=== PATIENT | male | born 1950 | race Caucasian/White ===

== ENCOUNTER 2024-11-12 09:51 | Day surgery (SDC) | payer MEDICARE, SELFPAY ==
--- NOTE | 2024-11-09 10:08 | SUR.PREOP ---
attempted to call pt to preop them, no answer. voicemail left with detailed information and callback number left
[2024-11-12 10:48] VITALS: BP 145/75; PULSE 74; RESP 18; TEMP 36.5; O2SAT 94; BMI 27.8
[2024-11-12 11:12] LABS: POC Glucose,Bedside 130 (70-110)
[2024-11-12] MEDS: LACTATED RINGERS 1000ML 1,000 ML 50 ML IV (11:16)
--- NOTE | 2024-11-12 11:18 | EXP.ANES.CKL ---
[facility] Disclaimer: The information contained in this section may have been updated after the patient was seen, as this information can be updated by other users. Medical History (Updated 11/12/24 @ 11:01 by Laura Champion RN) History of COVID-19 Diabetes mellitus, type 2 Atrial fibrillation Below knee amputation Pacemaker Skin cancer Surgical History H/O knee surgery H/O oral surgery History of total knee replacement Family History (Updated 11/12/24 @ 11:02 by Laura Champion RN) Other Amputee Diabetes type 1 Heart attack Hypertension Kidney stone Social History (Updated 11/12/24 @ 11:01 by Laura Champion RN) Smoking Status: Never smoker alcohol intake: former substance use type: denies use current occupational status: employed Travel in the last 8 weeks: Inside the [place] caffeine: Yes [facility] Anesthesia Checklist Patient Identification Patient Identification: Arm Band Structural Data Admitted From: Home Planned Operative Procedure/s: Colonoscopy Consent for Planned Operative Procedure(s) Verified: Yes Verified Documents: Surgical Consent and History and Physical NPO Status Verified Time NPO: 05:30 (finished prep) Additional verifications Anesthesia Reactions: No Airway Assessment Mallampati Score:: Class II C-Spine Mobility Assessed: Yes TMJ Mobility Assessed: Yes Dentition: Good Dentition Neurological Assessment Level of Consciousness: Awake, Alert and Appropriate Anesthesia Plan Anesthesia Risk discussed: Yes Anesthesia Plan: Verified ASA Class: III Anesthesia Type: MAC
--- NOTE | 2024-11-12 11:55 | EXP.HP ---
History of Present Illness *Admission Date: 11/12/24 *Reason for visit:: Initial screening colonoscopy *History of present illness: Mr. Tee is a 74-year-old gentleman who is here for initial screening colonoscopy. The examination is deemed medically necessary for screening colonoscopy. The patient has been seen, interviewed and examined prior to the procedure by both myself and the anesthesia provider. [facility] Disclaimer: The information contained in this section may have been updated after the patient was seen, as this information can be updated by other users. Medical History (Updated 11/12/24 @ 12:06 by Rajeev Del Valle II, MD) History of COVID-19 Diabetes mellitus, type 2 Atrial fibrillation Below knee amputation Pacemaker Skin cancer Surgical History H/O knee surgery H/O oral surgery History of total knee replacement Family History (Updated 11/12/24 @ 11:02 by Laura Champion RN) Other Amputee Diabetes type 1 Heart attack Hypertension Kidney stone Social History (Updated 11/12/24 @ 11:25 by Kenneth Troy CRNA) Smoking Status: Never smoker alcohol intake: former substance use type: denies use current occupational status: employed Travel in the last 8 weeks: Inside the [place] caffeine: Yes Have you lived/traveled outside [place] in past 30 days?: No Contact w/someone who lives/traveled outside US past 30 days?: No Exposure to someone with infectious disease in past 14 days?: No Do you have a fever (greater than 100.4 F or 38 C)?: No Have you tested positive for COVID-19: No Exposed to someone with COVID-19 in past 14 days?: No Do you have a sore throat?: No Do you have a cough?: No Do you have any weakness?: No Are you experiencing any nausea/vomitting?: No Do you have any diarrhea?: No Are you experiencing any unusual bleeding?: No Do you have any muscle aches/pain?: No Do you have any abdominal pain?: No Are you experiencing loss of taste or smell?: No Review of Systems Review of Systems Review of systems (narrative): Negative *Cardiovascular Comments: Negative *Gastrointestinal Comments: Negative *Genitourinary Comments: Negative *Musculoskeletal Comments: Negative *Neurologic Comments: Negative Meds Home Medications and Allergies Home Medications ?Medication ?Instructions ?Recorded ?Confirmed ?Type sodium,potassium,mag sulfates 17.5 See Rx Instructions PO .COMPLEX 10/29/24 Rx gram-3.13 gram-1.6 gram oral soln #354 mL (Suprep Bowel Prep Kit) atorvastatin 40 mg tablet 40 mg PO HS 11/12/24 11/12/24 History diclofenac sodium 75 mg 75 mg PO DAILY 11/12/24 11/12/24 History tablet,delayed release empagliflozin 25 mg tablet 25 mg PO DAILY 11/12/24 11/12/24 History (Jardiance) gabapentin 300 mg capsule 300 mg PO TID 11/12/24 11/12/24 History metformin 750 mg tablet 750 mg PO BID 11/12/24 11/12/24 History metoprolol succinate 50 mg 50 mg PO DAILY 11/12/24 11/12/24 History tablet,extended release 24 hr rivaroxaban 20 mg tablet (Xarelto) 20 mg PO DAILY 11/12/24 11/12/24 History sacubitril 49 mg-valsartan 51 mg 1 tab PO BID 11/12/24 11/12/24 History tablet (Entresto) New Prescriptions to Start Prescriptions: Allergies Allergy/AdvReac Type Severity Reaction Status Date / Time No Known Allergies Allergy Verified 11/12/24 10:40 Exam Data for Last 24 hours Vital signs and Labs for Last 24 Hours: Temp Pulse Resp BP Pulse Ox O2 Del Method 97.7 F 74 18 145/75 H 94 L Room Air 11/12/24 10:48 11/12/24 10:48 11/12/24 10:48 11/12/24 10:48 11/12/24 10:48 11/12/24 10:48 Laboratory Results - last 24 hr 11/12/24 10:55: POC Glucose 130 H I & O for Last 24 hours: Intake & Output 11/09/24 11/10/24 11/11/24 11/12/24 23:59 23:59 23:59 23:59 Weight 200 lb *Routine HEENT Exam Head: Present normocephalic Eye: Present EOMI and PERRL ENT: Present mucous membranes moist *Routine Neck Exam Neck: Present supple *Routine Respiratory Exam Respiratory: Present CTA bilaterally *Routine Cardiovascular Exam Cardiovascular: Present RRR *Routine Abdominal Exam Abdominal: Present soft and normoactive bowel sounds; Absent tenderness *Routine Rectal Exam Rectal:: deferred *Routine Genitalia Exam Genitalia:: deferred *Routine Extremities Exam Extremities: Absent cyanosis, clubbing or edema *Routine Skin Exam Skin: Present warm; Absent rash *Routine Neurological Exam Neurological: Present alert and oriented X3 Assessment and Plan *Assessment and plan (1) Screening for colon cancer: Status: Acute Category: Medical Code(s): Z12.11 - Encounter for screening for malignant neoplasm of colon Plan A/P: 1. Initial screening colonoscopy/screening for colon cancer is the preprocedural diagnosis. The patient will be anesthetized/sedated using MAC sedation. The patient has been seen and examined. Cardiac and lung assessment prior to the examination is stable. Proceed with planned screening colonoscopy.
[2024-11-12 12:00] VITALS: O2SAT 97
--- NOTE | 2024-11-12 12:06 | P.PCN_ITS ---
[facility] Procedure Note Date: 11/12/24 Time: 12:21 Procedure Note:: Colonoscopy Procedure Report: Colonoscopy with cold snare polypectomy Endoscopist: Rajeev Del Valle II, MD Referring physician: RAHEL Lopez [address] [place] [id number] Date of Procedure: November 12, 2024 Equipment: Olympus 190 variable stiffness pediatric colonoscope Sedation: MAC sedation Indication: Mr. Tee is a 74-year-old gentleman who is here for initial screening colonoscopy. He reports no abdominal pain, weight loss, change in his bowel habits or rectal bleeding. He reports no family history of colon cancer. His father had diverticulitis requiring surgery. Procedure: Prior to the procedure, a history and physical exam was performed, and patient's medications and allergies were reviewed. The risks, benefits and alternatives of the sedation and procedure were discussed with the patient. All questions were answered and informed consent was obtained. The patient was brought to the procedure room. Patient identification and proposed procedure were verified by the physician and the nurse. The patient was placed in a left lateral decubitus position and the scope was passed under direct vision. Throughout the procedure, the patient's blood pressure, pulse, and oxygen saturations were monitored continuously. The colonoscopy was accomplished without difficulty. The patient tolerated the procedure well. Findings: On digital rectal examination there was normal rectal tone. There were no external hemorrhoids. The prostate was 2+, smooth, soft, symmetric without nodules. The colonoscope was introduced through the anal canal to the rectum and advanced to the cecum. The ileocecal valve and appendiceal orifice were identified. The scope was advanced a short distance into the ileum which appeared grossly normal. The scope was then withdrawn into the colon. The cecum, ascending and transverse colon and mucosa were grossly normal. There were scattered diverticuli throughout the descending and sigmoid colon (LEFT colon). There were 4 polyps (rectosigmoid x 1 (8 mm) and rectal x 3 (4, 5 and 6 mm)). These were all removed via cold snare polypectomy. Upon retroflexion within the rectum there were grade 1-2 internal hemorrhoids. The preparation was excellent throughout with Kerman Preparation Score of 9. The cecal time was 12 minutes. Impression: 1. Colonic polyps x 4 2. Left-sided diverticulosis 3. Grade 1-2 internal hemorrhoids Plan: I will follow-up the polyp histology and make a determination upon whether further surveillance is warranted based upon age. I would encourage psyllium fiber supplementation on a long-term daily maintenanc e basis.
[2024-11-12 12:28] VITALS: BP 83/51; PULSE 73; RESP 18; TEMP 36.8; O2SAT 96
[2024-11-12 12:38] VITALS: BP 105/69; PULSE 77; RESP 17; O2SAT 96
[2024-11-12 12:48] VITALS: BP 104/71; PULSE 71; RESP 18; O2SAT 97
[2024-11-12 12:58] VITALS: BP 118/73; PULSE 77; RESP 16; O2SAT 96
== END 2024-11-12 13:00 | disposition home or self-care (01) ==
PROVIDERS: PCP Nurse Practitioner Primary Care; Visit Provider Internal Medicine Gastroenterology
PROC: 0DJD8ZZ Inspection of Lower Intestinal Tract, Via Natural or Artificial Opening Endoscopic (ICD-10-PCS; CPT 45378; principal; 2024-11-12 11:30)
DX: K63.5 Polyp of colon (principal); K57.30 Diverticulosis of large intestine without perforation or abscess without bleeding; K64.8 Other hemorrhoids; Z12.11 Encounter for screening for malignant neoplasm of colon; E11.9 Type 2 diabetes mellitus without complications; Z79.84 Long term (current) use of oral hypoglycemic drugs
CPT/HCPCS: 45385; 82962; J2704; J7120